=== PATIENT | female | born 1955 | race Caucasian/White ===

== ENCOUNTER → 2016-05-30 | Outpatient (CLI) | payer BC ==
[~2016-05-30] MED LIST: CALCIUM1 CAP PO; CLARITIN-D 24 H1 T24 PO; TYLENOL 325MG325 MG PO
== END ==
LOC: MC.RAD 05-26 10:00
DX: Z12.31 Encounter for screening mammogram for malignant neoplasm of breast (principal)

== ENCOUNTER → 2017-06-05 | Outpatient (CLI) | payer BC | LOC: MC.RAD 06:56 | DX: Z12.31 Encounter for screening mammogram for malignant neoplasm of breast (principal) ==

== ENCOUNTER → 2018-06-21 | Outpatient (CLI) | payer BC | LOC: MC.RAD 11:30 | DX: Z12.31 Encounter for screening mammogram for malignant neoplasm of breast (principal) ==

== ENCOUNTER → 2019-06-24 | Outpatient (CLI) | payer BC | LOC: MC.RAD 07:08 | DX: Z12.31 Encounter for screening mammogram for malignant neoplasm of breast (principal); N63.20 Unspecified lump in the left breast, unspecified quadrant ==

== ENCOUNTER → 2019-06-29 | Outpatient (CLI) | payer BC | LOC: MC.RAD 10:06 | DX: N60.02 Solitary cyst of left breast (principal) ==

== ENCOUNTER → 2020-06-25 | Outpatient (CLI) | payer BC | LOC: MC.RAD 10:07 | DX: Z12.31 Encounter for screening mammogram for malignant neoplasm of breast (principal) ==

== ENCOUNTER → 2021-07-02 | Outpatient (CLI) | payer BC | LOC: MC.RAD 07:42 | DX: Z12.31 Encounter for screening mammogram for malignant neoplasm of breast (principal) ==

== ENCOUNTER → 2023-08-14 | Outpatient (CLI) | payer MEDICARE, BC ==
[~2023-08-14] MED LIST changes: +CALCIUM 600 MG1 EAC2 PO; +DESYREL 50MG50 MG PO; +ESTRACE 1MG1 MG/TAB PO; +FLONASEALLERGY NS; +INDOCIN 25MG CA25 MG PO; +VITAMIN D31000 I1 PO; +ZANAFLEX2 MG PO; +ZYRTEC 10MG10 MG PO
== END ==
LOC: MC.RAD 10:33
DX: Z12.31 Encounter for screening mammogram for malignant neoplasm of breast (principal); N63.20 Unspecified lump in the left breast, unspecified quadrant; N64.89 Other specified disorders of breast